=== PATIENT | female | born 1990 | race Caucasian/White ===

== ENCOUNTER → 2016-11-29 | Outpatient (CLI) | payer BC ==
[~2016-11-29] MED LIST: AMOX875T2 PO; BIRTH CONTROL PO; OXYC1TAB8 PO; ZOLP5TAB2 PO
--- NOTE | 2016-11-29 14:49 | DI ---
Indication: ITS.REASON: M54.16 RADICULOPATHY low back and bilateral leg pain and numbness PROCEDURE: MRI LUMBAR SPINE W/O CONTRAST: Encounter: Initial Comparison: MRI lumbar spine dated August 16, 2014 Technique: Multiplanar multisequence MR imaging of the lumbar spine was performed without contrast. Findings: Alignment lumbar spine is stable. No acute fracture identified. Small disk protrusions are redemonstrated at L4-L5 and L5-S1. Conus medullaris terminates normally at L1. The paraspinal soft tissues are within normal limits. Segmental analysis: L1-L2: Normal L2-L3: Normal L3-L4: Normal L4-L5: Disk desiccation and small central bulge with high intensity zone. No central canal or neural foraminal stenosis however. L5-S1: Disk desiccation with a small central protrusion. No central canal stenosis. Mild narrowing of the left lateral recess with disk material abutting the traversing left S1 nerve roots. No true neural foraminal stenosis. Impression: Stable appearance of the lumbar spine with small L4-L5 and L5-S1 disk protrusions. There may be slight contact of the left S1 traversing nerve roots. .
== END ==
LOC: IMA 12:32
PROVIDERS: ATTEND Internal Medicine
DX: M51.26 Other intervertebral disc displacement, lumbar region (principal); M51.27 Other intervertebral disc displacement, lumbosacral region; M54.16 Radiculopathy, lumbar region